=== PATIENT | male | born 1960 | race American Indian/Alaskan Native ===

== ENCOUNTER 2019-06-01 09:18 | Outpatient (CLI) | payer OTHER ==
[2019-06-01 09:49] LABS: Hematocrit 43.5 % (35.5-45.6); Hemoglobin 14.7 gm/dl (11.8-15.2); Mean Corpuscular HGB Conc 34 % (32-34); Mean Corpuscular Volume 93 fl (84-94); Platelet Count 227 K/mm3 (140-440); Red Blood Count 4.66 M/mm3 (3.65-5.03); Red Cell Distribution Width 15.2 % (13.2-15.2)
[2019-06-01 10:15] LABS: Alanine Aminotransferase 13 units/L (7-56); Albumin 4.3 g/dL (3.9-5); BUN/Creatinine Ratio 15; Blood Urea Nitrogen 17 mg/dL (9-20); Calcium 9.1 mg/dL (8.4-10.2); Hemolysis Index 5
[2019-06-01 10:20] LABS: Erythrocyte Sedimentation Rate 6 mm/Hr (0-20)
== END 2019-06-01 09:19 | disposition home or self-care (01) ==
LOC: LAB 09:18
PROVIDERS: ATTEND Specialist
DX: G43.711 Chronic migraine without aura, intractable, with status migrainosus (principal)
CPT/HCPCS: 36415; 80053; 85027; 85652

== ENCOUNTER 2019-11-02 12:43 | Outpatient (CLI) | payer OTHER ==
--- NOTE | 2019-11-02 14:03 | Cat Scan Report ---
CT CHEST WITHOUT CONTRAST INDICATION / CLINICAL INFORMATION: nicotine dependence, chest pain . TECHNIQUE: Axial CT images were obtained through the chest without contrast. Sagittal and coronal reformatted im ages. All CT scans at this location are performed using CT dose reduction for ALARA by means of autom ated exposure control. COMPARISON: None available. FINDINGS: HEART: No significant abnormality. THORACIC AORTA: No significant abnormality. MEDIASTINUM and XIAO: No significant abnormality. LUNGS: No acute air space or interstitial disease. Mild centrilobular and moderate paraseptal emphys ematous changes are identified in the upper lung zones. There is minor focal scarring in the lingula, otherwise, the lungs are clear. No nodule or infiltrate. PLEURA: No significant pleural effusion. No pneumothorax. SKELETAL SYSTEM: Mild thoracic spondylosis. No fracture or suspicious bony lesion. UPPER ABDOMEN: No significant abnormality. ADDITIONAL FINDINGS: None. IMPRESSION: Emphysematous changes as described. Minor focal scarring in the lingula. No acute process or suspici ous lesion. Signer Name: Joe Varela Jr, MD Signed: 11/02/2019 1:58 PM Workstation Name: [id number]
== END 2019-11-02 12:44 | disposition home or self-care (01) ==
LOC: CT 12:43
PROVIDERS: ATTEND Internal Medicine Hematology & Oncology
DX: J43.2 Centrilobular emphysema (principal); M89.8X9 Other specified disorders of bone, unspecified site; F17.200 Nicotine dependence, unspecified, uncomplicated; M47.814 Spondylosis without myelopathy or radiculopathy, thoracic region
CPT/HCPCS: 71250